=== PATIENT | female | born 1985 | race African-American/Black ===

== ENCOUNTER 2021-07-20 16:55 | Emergency (ER) | payer SELFPAY ==
[~2021-07-20] VITALS: Ht 167.6 cm; Wt 64.4 kg
--- NOTE | 2021-07-20 17:35 | NUR ---
RECIEVED PT 35 YRS FEMALE CAME by pramiditz c/o pt took 9 tablet of oxycodine from last night until today awke asleepy respiration spont and easy drowsy the suero prococet empty and xanax 0.25mg 42 table some of 1/2 tablet
--- NOTE | 2021-07-20 18:00 | NUR ---
pt side i want to and i heart my self
--- NOTE | 2021-07-20 18:05 | NUR ---
seen by dr. gerber
[2021-07-20 18:12] LABS: BASOPHILS # (AUTO) 0.1 K/uL (0.0-0.2); BASOPHILS % (AUTO) 0.9 % (0.0-2.0); HEMATOCRIT 36 % (33-45); LYMPHOCYTES # (AUTO) 2.2 K/uL (0.8-4.8); LYMPHOCYTES % (AUTO) 35.8 % (20.0-44.0); MEAN CORPUSCULAR HGB CONC 33 g/dl (31.0-36.0); MEAN CORPUSCULAR VOLUME 81 fL (82-100); MONOCYTES # (AUTO) 0.5 K/uL (0.1-1.30); MONOCYTES % (AUTO) 7.3 % (2.0-12.0); NEUTROPHILS # (AUTO) 3.4 K/uL (1.8-8.9); PLATELET COUNT (AUTO) 275 K/uL (150-450); RED BLOOD CELL COUNT(AUTO) 4.48 MIL/uL (4.0-5.2); WHITE BLOOD COUNT (AUTO) 6.2 K/uL (4.3-11.0)
--- NOTE | 2021-07-20 18:30 | NUR ---
[employer] AT BED SIDE SPOOK WITH PT PT WANT kisha here self she want to
[2021-07-20 18:43] LABS: ALBUMIN 3.3 g/dL (3.4-5.0); BILIRUBIN,DIRECT 0.1 mg/dL (0.0-0.2); BILIRUBIN,TOTAL 0.6 mg/dL (0.2-1.0); CALCIUM, SERUM 8.4 mg/dL (8.5-10.1); CREATININE 0.9 mg/dL (0.6-1.3); POTASSIUM 3.8 mmol/L (3.5-5.1); TOTAL PROTEIN, SERUM 5.9 g/dL (6.4-8.2)
--- NOTE | 2021-07-20 19:00 | NUR ---
place pt on [id number] in hold pt try to [facility] AND LEAVE CODE [facility] [address] pt back in [facility] with security
--- NOTE | 2021-07-20 19:05 | NUR ---
KANG / LENKA 2 OFFCER #1 ALEXERA [id number] AND 2ND OFFICER MARINO # [id number] STILL AT BED SPOOK WITH PT
[2021-07-20] MEDS ORDERED: LORAZEPAM INJ 2 MG/ML VIAL ONE (19:15)
[2021-07-20] MEDS ORDERED: LORAZEPAM INJ 2 MG/ML VIAL IM ONE (19:30)
--- NOTE | 2021-07-20 19:46 | NUR ---
HAND OFF TO SEPTEMBER ESE PT COOPRATIVE
--- NOTE | 2021-07-20 19:55 | NUR ---
RECEIVED REPORT FROM [employer] FOR PEE
--- NOTE | 2021-07-20 19:58 | NUR ---
PT IS AGITATED, [employer] AT BEDSIDE. CONNECTED TO MONITOR. NOT IN RESPIRATORY DISTRESS. WILL CONTINUE TO MONITOR.
--- NOTE | 2021-07-20 21:03 | NUR ---
PT STILL AGITATED, STATES "I WANT MY BRASS POLISHER, I WANT TO GO HOME". WILL CONT TO MONITOR
--- NOTE | 2021-07-20 22:27 | NUR ---
PT RESTING COMFORTABLY IN BED, SHE IS CALM AND NO LONGER AGITATED. WILL CONTINUE TO MONITOR
--- NOTE | 2021-07-20 22:58 | NUR ---
CALLED POLICE SERGEANT CASEY FOR PSYCH EVAL, LEFT VOICEMAIL
--- NOTE | 2021-07-20 23:46 | NUR ---
PT BEING NON COMPLIANT, KEEPS LEAVING BED. 1:1 SITTER STILL AT BEDSIDE.
--- NOTE | 2021-07-21 00:05 | NUR ---
PT BECOMING MORE AGITATED, WALKED UP TO NURSES STATION YELLING STATING "IM LEAVING". ATTEMPTED TO LEAVE THE PREMISES. REDIRECTED PT TO HER ROOM, PT BECAME MORE AGITATED AND TRIED RUNNING AWAY. PT WAS HELPED BACK TO BED AND WHILE ATTEMPTING TO RESTRAIN HER, SHE BIT ONE OF OUR STAFF AND STARTED SPITTING AT STAFF. PT MEDICATED PT PER MD ORDERS.
--- NOTE | 2021-07-21 00:33 | NUR ---
CALLED TO FOLLOW UP WITH CASEY CASE. NO ANSWER.
[2021-07-21] MEDS ORDERED: LORAZEPAM INJ 2 MG/ML VIAL IM ONE (01:00)
--- NOTE | 2021-07-21 01:36 | NUR ---
DRAPERY OPERATOR AT BEDSIDE
--- NOTE | 2021-07-21 02:35 | NUR ---
PROSPECT MANAGER CLEARED PT, [id number]
--- NOTE | 2021-07-21 02:56 | NUR ---
PT DID NOT RECEIVE HER ACI, PT APPROACHED ER NURSE STATION AND BEGAN THREATENING STAFF. PT ESCORTED OUT. VICE PRINCIPAL PRESENT WHILE THIS OCCURED.
[2021-07-21 04:10] VITALS: BP 130/92
== END 2021-07-21 04:11 | disposition home or self-care (01) ==
LOC: ER 18:57
DX: R45.851 Suicidal ideations (principal); I10 Essential (primary) hypertension; F32.A Depression, unspecified
CPT/HCPCS: 36415; 80048; 80076; 80143; 80320; 85025; 96372 ×2; 99285; J2060 ×2; G0480